=== PATIENT | female | born 1985 | race Two or more races ===

== ENCOUNTER 2018-10-19 14:33 | Outpatient (CLI) | payer OTHER ==
[~2018-10-19 14:33] MED LIST: IRON1 TAB PO; PRENATAL CAPLE1 EACH PO
== END 2018-10-19 15:05 | disposition home or self-care (01) ==
LOC: RAD 501 14:33
DX: M25.571 Pain in right ankle and joints of right foot (principal)

== ENCOUNTER 2021-11-23 16:00 | Day surgery (SDC) | payer OTHER | END 2021-11-23 21:45 | disposition home or self-care (01) | LOC: CIR.AMB 16:00 | PROVIDERS: ATTEND Obstetrics & Gynecology | DX: O02.1 Missed abortion (principal); Z88.8 Allergy status to other drugs, medicaments and biological substances; Z87.891 Personal history of nicotine dependence; E66.9 Obesity, unspecified ==